=== PATIENT | female | born 1950 | race Caucasian/White ===

== ENCOUNTER 2017-09-14 14:50 | Day surgery (SDC) | payer OTHER, BC ==
[2017-09-14] MEDS ORDERED: MIDAZOLAM 1 MG/ML 2 ML INJ (16:17)
[2017-09-14] MEDS ORDERED: FENTAnyl 50 MCG/ML VIAL (16:17)
== END 2017-09-14 17:22 | disposition home or self-care (01) ==
LOC: GIL 14:50
DX: Z12.11 Encounter for screening for malignant neoplasm of colon (principal); K57.90 Diverticulosis of intestine, part unspecified, without perforation or abscess without bleeding; K64.8 Other hemorrhoids
CPT/HCPCS: 45378